=== PATIENT | male | born 1950 | race Caucasian/White ===

== ENCOUNTER 2021-01-10 06:52 | Observation (INO) | payer MEDICARE, OTHER ==
[~2021-01-10] VITALS: Ht 180.3 cm; Wt 82.0 kg
[~2021-01-10 06:52] MED LIST: ACET325 PO; AMLO5; AMLO5 PO; ASPI81EC; ASPI81EC PO; Amlodipine Bes2.5 MG PO; Aspir 8181 MG PO; CALCA500CH; CALCIUM CIT 311 EACH PO; CYCL100; CYCL100 PO; Cellcept500 MG PO; ERGO50000; ESCI10; ESCI10 PO; ESCI20 PO; FEXO60 PO; HYDACE5 PO; KEPPRA XR PO; LEVE500; LEVE500 PO; LISI10; LISI10 PO; LISI20; LISI5 PO; MAGNESIUM OXID500 MG PO; MAGOXI400 PO; METO10 PO; METO25 PO; MYCO250; MYCO250 PO; NAPR500 PO; OMEP20ER; OMEP20ER PO; OXYACE5T PO; PANT40 PO; PRED1; ROSU10TA; ROSU10TA PO
[2021-01-10 07:28] LABS: BASOPHILS ABSOLUTE AUTO 0.04 K/mm3 (0.00-0.23); BASOPHILS PERCENT AUTO 0 % (0-2); EOSINOPHILS ABSOLUTE AUTO 0.11 K/mm3 (0.00-0.68); EOSINOPHILS PERCENT AUTO 1 % (0-6); Hematocrit 43.3 % (37.0-53.0); Hemoglobin 14.8 g/dL (13.5-17.5); IMMATURE GRAN ABSOLUTE AUTO 0.07 K/mm3 (0.00-0.10); IMMATURE GRAN PERCENT AUTO 1 % (0-1); LYMPHOCYTES ABSOLUTE AUTO 1.75 K/mm3 (0.84-5.20); LYMPHOCYTES PERCENT AUTO 15 % (21-46); MONOCYTES ABSOLUTE AUTO 1.16 K/mm3 (0.16-1.47); MONOCYTES PERCENT AUTO 10 % (4-13); Mean Corpuscular HGB 30.7 pg (26.0-34.0); Mean Corpuscular HGB Conc 34.2 g/dL (31.5-36.5); Mean Corpuscular Volume 90 fL (80-100); Mean Platelet Volume 10.7 fL (9.1-12.4); NEUTROPHILS ABSOLUTE AUTO 8.85 K/mm3 (1.96-9.15); NEUTROPHILS PERCENT AUTO 74 % (41-73); Platelet Count 207 K/mm3 (150-400); RDW Standard Deviation 39.5 fL (35.1-46.3); Red Blood Cell Count 4.82 M/mm3 (4.30-5.90); White Blood Cell Count 11.98 K/mm3 (4.00-11.30)
[2021-01-10] MEDS ORDERED: CYCL25 PO ×2 (07:41→13:28)
[2021-01-10] MEDS ORDERED: ROWEEPRA XR500 MG PO (07:42)
[2021-01-10 07:49] LABS: Prothrombin Time Results 10.8 Sec (9.7-11.5)
[2021-01-10 07:54] LABS: Alanine Aminotransfer (ALT/SGP 20 U/L (12-78); Albumin, Blood 3.8 g/dL (3.4-5.0); Albumin/Globulin Ratio 1.2 (0.8-1.8); Alk Phos 86 U/L (50-136); Anion Gap 7 mmol/L (6-16); Aspartate Aminotrans (AST/SGOT 17 U/L (12-37); Bilirubin, Total 1.7 mg/dL (0.1-1.0); Blood Urea Nitrogen 25 mg/dL (8-24); Bun/Creatinine Ratio 26.7 (12.0-20.0); CO2, Blood 21 mmol/L (21-32); Calcium, Blood 8.4 mg/dL (8.5-10.1); Chloride, Blood 113 mmol/L (98-108); Creatinine, Blood 0.94 mg/dL (0.60-1.20); Globulin, Blood 3.1 g/dL (2.2-4.0); Glomerular Filtration Rate >60 (60-); Glucose, Blood 129 mg/dL (70-99); Potassium, Blood 3.6 mmol/L (3.5-5.5); Sodium, Blood 141 mmol/L (136-145); Total Protein, Blood 6.9 g/dL (6.4-8.2)
[2021-01-10 09:04] LABS: SARS-Cov-2 (COVID-19) PCR, MMC NEGATIVE (NEGATIVE)
[2021-01-10 10:45] LABS: Hematocrit 43.2 % (37.0-53.0); Hemoglobin 14.8 g/dL (13.5-17.5)
[2021-01-10] MEDS ORDERED: CYCLOSPORINE 50 MG PO (12:17)
[2021-01-10] MEDS ORDERED: PRAVASTATIN SOD10 MG PO (12:19)
[2021-01-10] MEDS ORDERED: Cellcept500 MG PO (12:19)
[2021-01-10] MEDS ORDERED: [UNRECOGNIZED DRUG - OTHER] PO (13:27)
[2021-01-10 14:09] LABS: Hematocrit 37.7 % (37.0-53.0); Hemoglobin 13.2 g/dL (13.5-17.5)
--- NOTE | 2021-01-10 16:11 | NUR ---
SHIFT SUMMARY PATIENT ADMITTED FROM ED AT 1354. PATIENT SETTLED INTO ROOM. TELE PLACED. PATIENT DENIES PAIN, NAUSEA, AND SHORTNESS OF BREATH. PATIENT HAS HAD ONE MAROON, LIQUID STOOL SINCE BEING ON THIS FLOOR. PATIENT IS A SBA TO THE COMMODE. PATIENT IS PLEASANT AND COOPERATIVE WITH CARE.
[2021-01-10 18:10] LABS: Hematocrit 35.4 % (37.0-53.0); Hemoglobin 12.5 g/dL (13.5-17.5)
--- NOTE | 2021-01-11 05:01 | NUR ---
BUDGET CONSULTANT SUMMARY PT A/O X4, SLEPT WELL TONIGHT. PT HAD 2 DARK RED LIQUID STOOLS ON NOC SHIFT. DENIES PAIN, DIZZINIESS, NAUSEA. TELE RUNNING SINUS TACH AT 112 THIS MORNING. RESTING COMFORTABLY. AMBULATES WITH SBA TO BSC. VITALS STABLE. CALL LIGHT WITHIN REACH, WILL CONTINUE TO MONITOR.
[2021-01-11 06:27] LABS: Alanine Aminotransfer (ALT/SGP 15 U/L (12-78); Albumin, Blood 3.1 g/dL (3.4-5.0); Alk Phos 72 U/L (50-136); Anion Gap 7 mmol/L (6-16); Aspartate Aminotrans (AST/SGOT 18 U/L (12-37); Bilirubin, Total 2.1 mg/dL (0.1-1.0); Blood Urea Nitrogen 17 mg/dL (8-24); Bun/Creatinine Ratio 20.6 (12.0-20.0); CO2, Blood 20 mmol/L (21-32); Chloride, Blood 114 mmol/L (98-108); Creatinine, Blood 0.83 mg/dL (0.60-1.20); Glomerular Filtration Rate >60 (60-); Glucose, Blood 83 mg/dL (70-99); Potassium, Blood 3.7 mmol/L (3.5-5.5); Sodium, Blood 141 mmol/L (136-145); Total Protein, Blood 6.1 g/dL (6.4-8.2)
[2021-01-11 08:35] LABS: Hematocrit 34.1 % (37.0-53.0); Hemoglobin 11.9 g/dL (13.5-17.5)
== END 2021-01-11 15:54 | disposition home or self-care (01) ==
LOC: ER 06:52 → MEDS 06:53
PROVIDERS: Emergency Medicine; Internal Medicine; Nurse Practitioner Acute Care; ADMIT Internal Medicine
DX: K57.31 Diverticulosis of large intestine without perforation or abscess with bleeding (principal); I10 Essential (primary) hypertension; E78.5 Hyperlipidemia, unspecified; G40.909 Epilepsy, unspecified, not intractable, without status epilepticus; I25.2 Old myocardial infarction; Z94.1 Heart transplant status; Z88.1 Allergy status to other antibiotic agents; Z88.8 Allergy status to other drugs, medicaments and biological substances; F41.8 Other specified anxiety disorders; Z20.822 Contact with and (suspected) exposure to COVID-19
CPT/HCPCS: 36415; 80053; 80158; 85014; 85018; 85025; 85610; 85730; 86850; 86900; 86901; 93005; 93010; A9270; G0378; J7030; J7040; J7515; J7517; U0004

== ENCOUNTER 2023-05-15 11:02 | Emergency (ER) | payer MEDICARE, OTHER ==
[~2023-05-15] VITALS: Ht 180.3 cm; Wt 74.8 kg
[~2023-05-15 11:02] MED LIST changes: +CYCL25 PO; +CYCLOSPORINE 50 MG PO; +PRAVASTATIN SOD10 MG PO; +ROWEEPRA XR500 MG PO; +[UNRECOGNIZED DRUG - OTHER] PO
[2023-05-15] MEDS ORDERED: FUROSEMIDE20 MG PO (11:32)
[2023-05-15] MEDS ORDERED: SPIRONOLACTONE25 MG PO (11:33)
[2023-05-15] MEDS ORDERED: FAMO10 PO (11:34)
[2023-05-15] MEDS ORDERED: KLOR-CON 1010 ME2 PO (11:34)
[2023-05-15 11:49] LABS: BASOPHILS ABSOLUTE AUTO 0.02 K/mm3 (0.00-0.23); BASOPHILS PERCENT AUTO 0 % (0-2); EOSINOPHILS ABSOLUTE AUTO 0.03 K/mm3 (0.00-0.68); EOSINOPHILS PERCENT AUTO 1 % (0-6); Hematocrit 40.5 % (37.0-53.0); IMMATURE GRAN ABSOLUTE AUTO 0.01 K/mm3 (0.00-0.10); IMMATURE GRAN PERCENT AUTO 0 % (0-1); LYMPHOCYTES ABSOLUTE AUTO 1.09 K/mm3 (0.84-5.20); LYMPHOCYTES PERCENT AUTO 21 % (21-46); MONOCYTES ABSOLUTE AUTO 0.79 K/mm3 (0.16-1.47); MONOCYTES PERCENT AUTO 16 % (4-13); Mean Corpuscular HGB 31.3 pg (26.0-34.0); Mean Corpuscular HGB Conc 34.6 g/dL (31.5-36.5); Mean Corpuscular Volume 90 fL (80-100); Mean Platelet Volume 11.2 fL (9.1-12.4); NEUTROPHILS ABSOLUTE AUTO 3.17 K/mm3 (1.96-9.15); NEUTROPHILS PERCENT AUTO 62 % (41-73); Platelet Count 125 K/mm3 (150-400); RDW Coefficient Variation 12.2 % (11.7-14.2); RDW Standard Deviation 40.4 fL (35.1-46.3); Red Blood Cell Count 4.48 M/mm3 (4.30-5.90); White Blood Cell Count 5.11 K/mm3 (4.00-11.30)
[2023-05-15 12:03] LABS: Albumin, Blood 3.8 g/dL (3.4-5.0); Albumin/Globulin Ratio 1.1 (0.8-1.8); Bilirubin, Total 0.6 mg/dL (0.1-1.0); Bun/Creatinine Ratio 15.1 (12.0-20.0); Calcium, Blood 8.8 mg/dL (8.5-10.1); Creatinine, Blood 3.84 mg/dL (0.60-1.20); Globulin, Blood 3.5 g/dL (2.2-4.0); Potassium, Blood 4.3 mmol/L (3.5-5.5); Total Protein, Blood 7.3 g/dL (6.4-8.2)
[2023-05-15 13:19] LABS: Influenza B, PCR NEGATIVE (NEGATIVE); Resp Syncytial Virus, PCR NEGATIVE (NEGATIVE); SARS-Cov-2 (COVID-19) PCR, MMC NEGATIVE (NEGATIVE)
[2023-05-15 13:44] LABS: Influenza A, PCR POSITIVE (NEGATIVE)
[2023-05-15 14:03] VITALS: BP 113/79
== END 2023-05-15 14:16 | disposition home or self-care (01) ==
LOC: ER 11:02
PROVIDERS: Emergency Medicine
DX: J10.1 Influenza due to other identified influenza virus with other respiratory manifestations (principal); N28.9 Disorder of kidney and ureter, unspecified; E86.0 Dehydration; Z51.5 Encounter for palliative care; Z94.1 Heart transplant status; I25.2 Old myocardial infarction; I10 Essential (primary) hypertension; E78.5 Hyperlipidemia, unspecified; G40.409 Other generalized epilepsy and epileptic syndromes, not intractable, without status epilepticus; Z79.899 Other long term (current) drug therapy; Z88.1 Allergy status to other antibiotic agents; Z88.8 Allergy status to other drugs, medicaments and biological substances
CPT/HCPCS: 0241U; 71045; 80053; 83880; 84484; 85025; 96360; 96361; 99285-25; J7030

== ENCOUNTER 2024-02-01 18:55 | Emergency (ER) | payer MEDICARE, OTHER ==
[~2024-02-01] VITALS: Ht 170.2 cm; Wt 68.0 kg
[~2024-02-01 18:55] MED LIST changes: +FAMO10 PO; +FUROSEMIDE20 MG PO; +KLOR-CON 1010 ME2 PO; +SPIRONOLACTONE25 MG PO
[2024-02-01] MEDS ORDERED: LORAZEPAM0.5 MG PO (19:30)
[2024-02-01] MEDS ORDERED: ONDA4ODT MM (19:31)
[2024-02-01] MEDS ORDERED: Midodrine HCl2.5 MG PO (19:32)
[2024-02-01 21:00] VITALS: BP 99/86
== END 2024-02-01 21:45 | disposition home or self-care (01) ==
LOC: ER 18:55
DX: S01.111A Laceration without foreign body of right eyelid and periocular area, initial encounter (principal); I10 Essential (primary) hypertension; I25.2 Old myocardial infarction; E78.5 Hyperlipidemia, unspecified; W18.30XA Fall on same level, unspecified, initial encounter; Z79.899 Other long term (current) drug therapy; Z88.1 Allergy status to other antibiotic agents; Z88.8 Allergy status to other drugs, medicaments and biological substances
CPT/HCPCS: 12011; 99283-25